=== PATIENT | female | born 1995 | race Caucasian/White ===

== ENCOUNTER 2016-10-16 20:41 | Emergency (ER) | payer SELFPAY ==
[~2016-10-16] VITALS: Ht 152.4 cm; Wt 50.8 kg
[2016-10-16] MEDS ORDERED: KEFLEX500 MG PO (21:55)
[2016-10-16] MEDS ORDERED: ULTRAM50 MG PO (21:55)
[2016-10-16] MEDS ORDERED: MOTRIN800 MG PO (21:55)
[2016-10-16 22:10] VITALS: BP 106/63
== END 2016-10-16 22:12 | disposition home or self-care (01) ==
LOC: EME 20:41
DX: S61.012A Laceration without foreign body of left thumb without damage to nail, initial encounter (principal); W29.0XXA Contact with powered kitchen appliance, initial encounter; Z23 Encounter for immunization
CPT/HCPCS: 73140; 99281; 99284

== ENCOUNTER 2017-08-30 20:31 | Emergency (ER) | payer OTHER ==
[~2017-08-30] VITALS: Ht 157.5 cm; Wt 50.8 kg
[~2017-08-30 20:31] MED LIST: KEFLEX500 MG PO; MOTRIN800 MG PO; ULTRAM50 MG PO
[2017-08-30 21:10] LABS: APPEARANCE SL.HAZY ((CLEAR)); BILIRUBIN NEGATIVE; BLOOD SMALL; COLOR YELLOW ((YELLOW)); GLUCOSE (STRIP) NEGATIVE; KETONES NEGATIVE; LEUKOCYTES LARGE; NITRITE NEGATIVE; PROTEIN (STRIP) 30; SPECIFIC GRAVITY 1.009 (1.000-1.030); UROBILINOGEN 0.2 MG/DL (0.2-1.0)
[2017-08-30 21:16] LABS: BACTERIA RARE /HPF; EPITHELIAL CELLS RARE /HPF; MUCUS TRACE /LPF; RED BLOOD CELLS 15-20 /HPF (0-5); UCUL ADDED? YES; WHITE BLOOD CELLS TNTC /HPF (0-5)
[2017-08-30 21:34] LABS: HEMATOCRIT 36.3 % (36.0-46.0); HEMOGLOBIN 12.7 G/DL (11.9-15.5); MCH 31.8 PG (29.0-34.0); MCV 90.8 FL (83-99); RBC DIS.WIDTH-CV 11.9 % (11.8-14.6); RBC DIS.WIDTH-SD 39.8 % (39-53); WHITE BLOOD COUNT 11.1 K/uL (4.1-10.2)
[2017-08-30 21:44] LABS: ALBUMIN 4.3 g/dL (3.2-4.8); CHLORIDE 102 mEq/L (99-109); POTASSIUM 3.6 mEq/L (3.7-5.4); SODIUM 140 mEq/L (136-147)
[2017-08-30 21:47] LABS: GLUCOSE 88 mg/dL (70-99); TOTAL PROTEIN 7.6 g/dL (6.4-8.3)
[2017-08-30 21:49] LABS: TOTAL BILIRUBIN 1.3 mg/dL (0.0-1.0)
[2017-08-30 21:50] LABS: ALKALINE PHOSPHATASE 59 IU/L (3-129)
[2017-08-30 21:51] LABS: CREATININE 0.7 mg/dL (0.6-1.3); GFR ESTIMATE (CALCULATED) > 59 mL/min/
[2017-08-30 21:52] LABS: AST (GOT) 16 IU/L (2-34); UREA NITROGEN (BUN) 7 mg/dL (9-23)
[2017-08-30 21:53] LABS: ALT (GPT) 12 IU/L (3-49)
[2017-08-30 21:59] LABS: QUANTITATIVE HCG < 4.0 MIU/ML
[2017-08-30] MEDS ORDERED: KEFLEX500 MG PO (22:04)
[2017-08-30 22:11] LABS: PLATELET COUNT 233 K/uL (156-360)
[2017-08-30 22:21] VITALS: BP 117/75
== END 2017-08-30 22:22 | disposition home or self-care (01) ==
LOC: EME 20:31
DX: N39.0 Urinary tract infection, site not specified (principal)
CPT/HCPCS: 80053; 81003; 84702; 85027; 87077; 87086; 87186; 99281; 99283